=== PATIENT | male | born 1965 | race Hispanic/Latino ===

== ENCOUNTER 2022-05-06 12:32 | Outpatient (CLI) | payer BC ==
[2022-05-06] MEDS ORDERED: Iopamidol 370 76% 100 ML VIAL ONE (14:00)
== END 2022-05-06 12:33 | disposition home or self-care (01) ==
LOC: BICCT 12:32
PROVIDERS: ATTEND Urology
DX: N50.89 Other specified disorders of the male genital organs (principal); N28.1 Cyst of kidney, acquired; K76.9 Liver disease, unspecified
CPT/HCPCS: 74178; Q9967

== ENCOUNTER 2022-05-12 08:39 | Day surgery (SDC) | payer BC ==
[2022-05-10 11:38] VITALS: BMI 22.1
[2022-05-12] MEDS ORDERED: CEFAZOLIN 1 GM VIAL ONE (12:09)
[2022-05-12] MEDS ORDERED: Sodium Chloride 0.9% 100 ML ONE (12:09)
[2022-05-12] MEDS ORDERED: fentaNYL Citrate/PF 100 MCG/2 ML SYRINGE ONE ×2 (12:09→14:47)
[2022-05-12] MEDS ORDERED: HYDROmorphone 0.5 MG/0.5 ML SYRINGE ONE (12:09)
[2022-05-12] MEDS ORDERED: Lidocaine 1% MPF 2 ML VIAL ONE (12:17)
[2022-05-12] MEDS ORDERED: NEOSTIGMINE 3 MG/3 ML SYR 3 MG/3 ML SYRINGE ONE (12:17)
[2022-05-12] MEDS ORDERED: PROPOFOL 200 MG/20 ML VIAL ONE (12:17)
[2022-05-12] MEDS ORDERED: Ondansetron PF 4 MG/2 ML Vial ONE ×2 (12:17→15:19)
[2022-05-12] MEDS ORDERED: Bacitracin Zinc Ointment 30 gm TUBE ONE (12:17)
[2022-05-12] MEDS ORDERED: Bupivacaine PF 0.5% 30 ML VIAL ONE (12:17)
[2022-05-12] MEDS ORDERED: Dexamethasone 20 MG/5 ML VIAL ONE (12:17)
[2022-05-12] MEDS ORDERED: Bupivacaine 0.25% 10 ML VIAL ONE (12:17)
[2022-05-12] MEDS ORDERED: Rocuronium Bromide 10 MG/ML (10ML VIAL) ONE (12:17)
[2022-05-12] MEDS ORDERED: Glycopyrrolate 0.2 MG/ML 5 ML SYRINGE ONE (12:17)
[2022-05-12] MEDS ORDERED: Phenazopyridine HCl 100 MG TAB ONE (14:58)
== END 2022-05-12 16:05 | disposition home or self-care (01) ==
LOC: SDC 08:39
PROVIDERS: ATTEND Urology
PROC: 0VB50ZZ Excision of Scrotum, Open Approach (ICD-10-PCS; principal; 2022-05-12)
DX: D17.79 Benign lipomatous neoplasm of other sites (principal); N40.0 Benign prostatic hyperplasia without lower urinary tract symptoms; N28.1 Cyst of kidney, acquired; Z87.891 Personal history of nicotine dependence
CPT/HCPCS: 88307; 88325; J0690; J1100; J1170; J2405; J2704; J3490; S0020